=== PATIENT | female | born 1945 | race Caucasian/White ===

== ENCOUNTER 2019-11-02 07:03 | Inpatient (IN) | payer OTHER ==
[2019-11-02] VITALS (35 sets, daily range): BP systolic 88–148; BP diastolic 38–65
[~2019-11-02] VITALS: Ht 165.1 cm; Wt 75.4 kg
[2019-11-02] MEDS ORDERED: SYNTHROID112 MC1 PO (07:15)
[2019-11-02] MEDS ORDERED: ZESTRIL20 MG PO (07:15)
[2019-11-02 07:25] LABS: ABSOLUTE BASOPHILS 0.1 thou/uL (0.0-0.2); ABSOLUTE EOSINOPHILS 0.2 thou/uL (0.0-0.7); ABSOLUTE MONOCYTES 0.7 thou/uL (0.0-1.2); ABSOLUTE NEUTROPHILS 11.2 thou/uL (1.6-8.1); BASOPHILS 0.8 %; EOSINOPHILS 1.6 %; HEMATOCRIT 44.8 % (37.0-47.0); HEMOGLOBIN 15.6 gm/dL (12.0-15.0); LYMPHOCYTES 7.5 %; MCH 32.2 pg (26.0-34.0); MCHC 34.8 g/dL (28.0-37.0); MCV 92.8 fL (80.0-100.0); MONOCYTES 5.4 %; MPV 8.8 fl. (7.2-11.1); NUCLEATED RBCS 0 /100WBC; PLATELET COUNT* 176 thou/uL (150-400); POLYS 84.7 %; RBC 4.83 mil/uL (4.20-5.00); RDW-CV 13.6 % (10.5-14.5); WBC 13.2 thou/uL (4.0-11.0)
[2019-11-02 07:36] LABS: APTT 27.4 Seconds (25.0-31.3); INR 1.1; PROTIME 11.4 Seconds (9.20-11.50)
[2019-11-02 07:38] LABS: CREATININE 5.9 mg/dL (0.6-1.3); POTASSIUM 3.2 mmol/L (3.5-5.1)
[2019-11-02 07:39] LABS: URINE BILIRUBIN NEGATIVE (Negative); URINE BLOOD 2+ (Negative); URINE CLARITY CLEAR; URINE COLOR YELLOW; URINE GLUCOSE-RANDOM NEGATIVE (Negative); URINE KETONES NEGATIVE (Negative); URINE LEUKOCYTES-REFLEX 2+ (Negative); URINE NITRITE-REFLEX POSITIVE (Negative); URINE PROTEIN 1+ (Negative); URINE UROBILINOGEN 0.2 E.U./dl (0.2-1.0)
[2019-11-02 07:42] LABS: ALBUMIN 2.4 g/dL (3.4-5.0); MAGNESIUM 2.1 mg/dL (1.8-2.4); TOTAL BILIRUBIN 1.3 mg/dL (<0.1-1.0); TOTAL PROTEIN 6.6 g/dL (6.4-8.2)
[2019-11-02 07:46] LABS: CASTS None Seen /LPF (None Seen); CRYSTALS None Seen /LPF (None Seen); MUCUS 0-3 Light strn/LPF (None Seen); SQUAMOUS 4-10 Moderate /LPF (0-3); URINE RBC 3-10 Few /HPF (0-2)
--- NOTE | 2019-11-02 09:48 | EKG ---
[place] [address] ELECTROCARDIOGRAM REPORT Name: HEYDI MACIAS Room: [place] [address] ADM IN [facility]#: [id number] Admission: 11/02/19 Attend Phys: Pelon Vale MD Discharge: Date of : 49 Report #: [id number] THIS REPORT FOR: //name// [facility] ED Test Date: 2019-11-02 Test Time: 07:08:12 Pat Name: HEYDI MACIAS Department: Room: [facility] Gender: F Wet Pan Mixer: BOBBY : 1945 Requested By: Dinora Kan Order Number: [id number] MD: Isac Dennis Measurements Intervals [place] Rate: 86 P: 80 VA: 156 QRS: -41 QRSD: 105 T: 103 QT: 383 QTc: 458 Interpretive Statements Sinus rhythm Left atrial enlargement Left anterior fascicular block LVH with secondary repolarization abnormality No previous ECG available for comparison Electronically Signed On 11-02-2019 9:48:03 TOLL SERVICE OBSERVER by Isac Dennis [email or web address] <ELECTRONICALLY SIGNED> By: Isac Dennis MD, [facility] 11/02/19 0948 0708 0708 Isac Dennis MD, [facility] /EPI
[2019-11-02 11:56] LABS: BE -5.2 mmol/L (-2 to +3); PCO2 41.5 mmHg (35.0-45.0); PO2 65.3 mmHg (75.0-100.0); pH 7.316 (7.340-7.450)
--- NOTE | 2019-11-02 12:46 | 2DMMODE ---
[place] [address] 2 D/M-MODE ECHOCARDIOGRAM Name: AYLA MACIAS Room: [address] IN [facility]#: [id number] Admission: 11/02/19 Attend Phys: Pelon Vale, Discharge: Date of : 49 Date of Service: 11/02/19 1246 Report #: [id number] THIS REPORT FOR: //name// ADDENDUM APPROVED REPORT Study performed: 11/02/2019 11:32:03 EXAM: Comprehensive 2D, Doppler, and color-flow Echocardiogram Patient Location: In-Patient Room #: 006 Status: routine BSA: 1.71 HR: 79 bpm BP: 98/46 mmHg Rhythm: NSR Other Information Study Quality: Good Indications Congestive Heart Failure 2D Dimensions IVSd: 12.14 (7-11mm) LVOT Diam: 19.90 (18-24mm) LVDd: 35.25 mm PWd: 11.89 (7-11mm) Ascending Ao: 31.25 (22-36mm) LVDs: 21.47 (25-40mm) Aortic Root: 33.41 mm Volumes Left Atrial Volume (Systole) LA ESV Index: 20.30 mL/m2 Aortic Valve AoV Peak Maynor.: 1.75 m/s AO Peak Gr.: 12.22 mmHg LVOT Max P.58 mmHg AO Mean Gr.: 7.77 mmHg LVOT Mean P.29 mmHg LVOT Max V: 0.80 m/s AO V2 VTI: 25.09 cm LVOT Mean V: 0.52 m/s BETTIE (VTI): 1.67 cm2 LVOT V1 VTI: 13.45 cm Mitral Valve MV Mean Gr.: 2.25 mmHg E/A Ratio: 0.49 MV Decel. Time: 367.42 ms MV E Max Maynor.: 0.61 m/[place] [address] 2 D/M-MODE ECHOCARDIOGRAM Name: AYLA MACIAS Room: [address] IN .R.#: [id number] Admission: 11/02/19 Attend Phys: Pelon Vale, Discharge: Date of : 49 Date of Service: 11/02/19 1246 Report #: [id number] MV PHT: 106.55 ms MVA (PHT): 2.06 cm2 TDI E/Lateral E': 5.55 E/Medial E': 6.78 Medial E' Maynor.: 0.09 m/s Lateral E' Maynor.: 0.11 m/s Pulmonary Valve PV Peak Maynor.: 1.28 m/s PV Peak Gr.: 6.59 mmHg Tricuspid Valve RAP Estimate: 5.00 mmHg TR Peak Gr.: 31.61 mmHg RVSP: 36.00 mmHg PA Pressure: 36.00 mmHg Left Ventricle The left ventricle is normal size. There is normal LV segmental wall motion. Mild concentric left ventricular hypertrophy. Left ventricular systolic function is normal. LVEF is 60-65%. Grade I - abnormal relaxation pattern. Right Ventricle The right ventricle is normal size. The right ventricular systolic function is normal. Atria The left atrium size is normal. The right atrium size is normal. Aortic Valve Mild aortic valve sclerosis. No aortic regurgitation is present. Mild aortic stenosis. Mitral Valve There is mitral annular calcification. Mild mitral regurgitation. Mild mitral stenosis. There is mild mitral valve prolapse. Tricuspid Valve The tricuspid valve is normal in structure. Trace tricuspid regurgitation. Mild pulmonary hypertension. Pulmonic Valve The pulmonary valve is normal in structure. There is no pulmonic [place] [address] 2 D/M-MODE ECHOCARDIOGRAM Name: AYLA MACIAS Room: [address]#: [id number] Admission: 11/02/19 Attend Phys: Pelon Vale, Discharge: Date of : 49 Date of Service: 11/02/19 1246 Report #: [id number] Great Vessels The aortic root is normal in size. IVC is normal in size and collapses >50% with inspiration. Pericardium There is no pericardial effusion. <Conclusion> The left ventricle is normal size. Mild concentric left ventricular hypertrophy. Left ventricular systolic function is normal. LVEF is 60-65%. Grade I - abnormal relaxation pattern. Mild aortic valve sclerosis. Mild aortic stenosis. There is mitral annular calcification. There is mild mitral valve prolapse. Mild mitral regurgitation. Mild mitral stenosis. Trace tricuspid regurgitation. Mild pulmonary hypertension. IVC is normal in size and collapses >50% with inspiration. <ELECTRONICALLY SIGNED> By: Fede Payton MD, FACC 11/02/19 1246 1246 1246 Fede Payton MD, FACC /INF
[2019-11-02 14:16] LABS: HEMATOCRIT 40.7 % (37.0-47.0); HEMOGLOBIN 14.1 gm/dL (12.0-15.0); MCH 32.6 pg (26.0-34.0); MCHC 34.7 g/dL (28.0-37.0); RBC 4.33 mil/uL (4.20-5.00); RDW-CV 13.4 % (10.5-14.5); WBC 14.9 thou/uL (4.0-11.0)
[2019-11-02 14:29] LABS: CALCIUM 7.5 mg/dL (8.5-10.1); CREATININE 5.7 mg/dL (0.6-1.3); POTASSIUM 3.3 mmol/L (3.5-5.1); TOTAL BILIRUBIN 1.4 mg/dL (<0.1-1.0); TOTAL PROTEIN 4.9 g/dL (6.4-8.2)
[2019-11-02 17:34] LABS: BE -5.3 mmol/L (-2 to +3); PCO2 49.1 mmHg (35.0-45.0)
[2019-11-02 17:36] LABS: PO2 240.3 mmHg (75.0-100.0); pH 7.267 (7.340-7.450)
[2019-11-02 17:39] LABS: HEMATOCRIT 38.5 % (37.0-47.0); HEMOGLOBIN 13.1 gm/dL (12.0-15.0); MCHC 34.1 g/dL (28.0-37.0); MCV 93.8 fL (80.0-100.0); MPV 9.2 fl. (7.2-11.1); RBC 4.1 mil/uL (4.20-5.00); RDW-CV 13.8 % (10.5-14.5); WBC 18.6 thou/uL (4.0-11.0)
[2019-11-02 17:57] LABS: ALBUMIN 1.7 g/dL (3.4-5.0); CALCIUM 7.5 mg/dL (8.5-10.1); CREATININE 5.1 mg/dL (0.6-1.3); POTASSIUM 3.5 mmol/L (3.5-5.1); TOTAL BILIRUBIN 1.8 mg/dL (<0.1-1.0); TOTAL PROTEIN 4.7 g/dL (6.4-8.2)
[2019-11-02 18:10] LABS: BE -5.4 mmol/L (-2 to +3); PO2 84.3 mmHg (75.0-100.0)
[2019-11-02 18:19] LABS: PCO2 50.6 mmHg (35.0-45.0); pH 7.258 (7.340-7.450)
[2019-11-02 22:26] LABS: INFLUENZA A ANTIGEN Negative (Negative); INFLUENZA B ANTIGEN Negative (Negative)
[2019-11-02 22:35] LABS: BE -5.1 mmol/L (-2 to +3); PCO2 44.4 mmHg (35.0-45.0); PO2 87.4 mmHg (75.0-100.0)
[2019-11-02 22:36] LABS: pH 7.298 (7.340-7.450)
[2019-11-02 22:43] LABS: CALCIUM 7.6 mg/dL (8.5-10.1); CREATININE 5.1 mg/dL (0.6-1.3); POTASSIUM 3.8 mmol/L (3.5-5.1)
[2019-11-03] VITALS (28 sets, daily range): BP systolic 91–137; BP diastolic 34–69
[2019-11-03 04:17] LABS: HEMATOCRIT 37.5 % (37.0-47.0); HEMOGLOBIN 12.6 gm/dL (12.0-15.0); MCH 31.6 pg (26.0-34.0); MCHC 33.6 g/dL (28.0-37.0); MCV 93.9 fL (80.0-100.0); MPV 8.6 fl. (7.2-11.1); NUCLEATED RBCS 0 /100WBC; PLATELET COUNT* 177 thou/uL (150-400); WBC 22.1 thou/uL (4.0-11.0)
[2019-11-03 04:38] LABS: INR 1.2; PROTIME 12.6 Seconds (9.20-11.50)
[2019-11-03 05:33] LABS: BE -5.1 mmol/L (-2 to +3); PCO2 43.4 mmHg (35.0-45.0); PO2 77.9 mmHg (75.0-100.0); pH 7.306 (7.340-7.450)
[2019-11-03 05:52] LABS: ALBUMIN 1.6 g/dL (3.4-5.0); CALCIUM 7.9 mg/dL (8.5-10.1); CREATININE 5.2 mg/dL (0.6-1.3); MAGNESIUM 1.6 mg/dL (1.8-2.4); PHOSPHORUS* 6.1 mg/dL (2.5-4.9); TOTAL PROTEIN 5.2 g/dL (6.4-8.2)
[2019-11-03 06:48] LABS: ABSOLUTE LYMPHOCYTES 1.1 thou/uL (0.8-5.3); PLATELET ESTIMATE ADEQUATE; TOXIC GRANULATION 1+
[2019-11-03 09:20] LABS: BE -4.2 mmol/L (-2 to +3); PCO2 41.3 mmHg (35.0-45.0); PO2 85.6 mmHg (75.0-100.0); pH 7.333 (7.340-7.450)
[2019-11-03 17:08] LABS: BE -3.6 mmol/L (-2 to +3); PCO2 37.3 mmHg (35.0-45.0); PO2 90.6 mmHg (75.0-100.0); pH 7.372 (7.340-7.450)
[2019-11-04] VITALS (23 sets, daily range): BP systolic 96–137; BP diastolic 40–70
[2019-11-04 01:54] LABS: BE -3.6 mmol/L (-2 to +3); PCO2 41.1 mmHg (35.0-45.0); PO2 97.7 mmHg (75.0-100.0); pH 7.344 (7.340-7.450)
[2019-11-04 06:06] LABS: ABSOLUTE LYMPHOCYTES 0.7 thou/uL (0.8-5.3); ABSOLUTE MONOCYTES 0.4 thou/uL (0.0-1.2); ABSOLUTE NEUTROPHILS 18.6 thou/uL (1.6-8.1); BASOPHILS 0.1 %; HEMATOCRIT 33.8 % (37.0-47.0); HEMOGLOBIN 11.6 gm/dL (12.0-15.0); LYMPHOCYTES 3.5 %; MCH 32.2 pg (26.0-34.0); MCHC 34.2 g/dL (28.0-37.0); MCV 94.2 fL (80.0-100.0); MONOCYTES 1.9 %; MPV 8.7 fl. (7.2-11.1); NUCLEATED RBCS 0 /100WBC; PLATELET COUNT* 178 thou/uL (150-400); POLYS 94.5 %; RBC 3.59 mil/uL (4.20-5.00); RDW-CV 13.8 % (10.5-14.5); WBC 19.7 thou/uL (4.0-11.0)
[2019-11-04 06:10] LABS: PHOSPHORUS* 6.2 mg/dL (2.5-4.9)
[2019-11-04 06:13] LABS: ALBUMIN 1.4 g/dL (3.4-5.0); ALKALINE PHOSPHATASE 55 U/L (46-116); ANION GAP 13 mmol/L (7-16); BUN 72 mg/dL (7-18); CALCIUM 7.7 mg/dL (8.5-10.1); CHLORIDE 101 mmol/L (98-107); CO2 23 mmol/L (21-32); CREATININE 5.1 mg/dL (0.6-1.3); GLUCOSE 83 mg/dL (70-99); SGOT 18 U/L (15-37); SGPT < 6 U/L (30-65); SODIUM 137 mmol/L (136-145); TOTAL BILIRUBIN 0.7 mg/dL (<0.1-1.0)
[2019-11-04 06:17] LABS: PREALBUMIN 6.4 mg/dL (18.0-35.7)
[2019-11-04 07:13] LABS: ESR (SEDRATE) 55 mm/hr (0-30)
[2019-11-05] VITALS (24 sets, daily range): BP systolic 93–150; BP diastolic 39–74
[2019-11-05 04:35] LABS: ALBUMIN 1.3 g/dL (3.4-5.0); CALCIUM 7.6 mg/dL (8.5-10.1); CREATININE 5.1 mg/dL (0.6-1.3); POTASSIUM 3.7 mmol/L (3.5-5.1); TOTAL BILIRUBIN 0.6 mg/dL (<0.1-1.0); TOTAL PROTEIN 4.8 g/dL (6.4-8.2)
[2019-11-05 04:38] LABS: ABSOLUTE LYMPHOCYTES 0.6 thou/uL (0.8-5.3); ABSOLUTE MONOCYTES 0.3 thou/uL (0.0-1.2); ABSOLUTE NEUTROPHILS 20.7 thou/uL (1.6-8.1); BASOPHILS 0.1 %; HEMATOCRIT 33.9 % (37.0-47.0); HEMOGLOBIN 11.6 gm/dL (12.0-15.0); LYMPHOCYTES 2.7 %; MCHC 34.3 g/dL (28.0-37.0); MCV 93.5 fL (80.0-100.0); MONOCYTES 1.5 %; MPV 8.5 fl. (7.2-11.1); NUCLEATED RBCS 0 /100WBC; PLATELET COUNT* 207 thou/uL (150-400); POLYS 95.7 %; RBC 3.63 mil/uL (4.20-5.00); RDW-CV 14.4 % (10.5-14.5); WBC 21.7 thou/uL (4.0-11.0)
[2019-11-05 05:09] LABS: MAGNESIUM 1.9 mg/dL (1.8-2.4); PHOSPHORUS* 5.9 mg/dL (2.5-4.9)
--- NOTE | 2019-11-05 09:24 | CON ---
[address] [address] CONSULTATION Name: AYLA MACIAS Room: [address] IN ..#: [id number] Admission: 11/02/19 Attend Phys: Pelon Vale MD Discharge: Date of : 49 Report #: [id number] THIS REPORT FOR: //name// CC: Pelon Vale [facility] DATE OF SERVICE: 11/02/2019 NEPHROLOGY CONSULTATION CONSULTING PHYSICIAN: Dinora Kan MD REASON FOR NEPHROLOGY CONSULTATION: Acute renal failure. REASON FOR ADMISSION: UTI, acute renal failure. The patient came in feeling very short of breath. 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 She does not have any history of RI or does not have a stent. She has history of hypertension, history of hypothyroidism. She does smoke every day about 5-6 cigarettes a day and she was visiting her son for [place] and became very short of breath last night and that is why she was brought to the hospital. A week ago, she had a GI bug. She was having diarrhea. People were sick around her and she was taking naproxen about 2 tablets a day since then. She also takes lisinopril at home. According to patient's son, the patient had not been drinking much water. Here, her labs showed sodium 132, potassium 3.2, chloride 93, BUN 85, creatinine 5.9 and baseline labs are not known and her blood pressure was also low 90, systolic when she came in. She also has evidence of left-sided pneumonia. She has been started on IV fluids. The patient also received a dose of Ativan before I could evaluate her, so she was very drowsy and could not provide review of systems. REVIEW OF SYSTEMS: Could not provide because she is quite drowsy. Please refer to history of present illness. ALLERGIES: GENTAMICIN. PAST MEDICAL HISTORY: CHF with ejection fraction not known, some kind of congenital heart murmur, hypertension, hypothyroidism. CURRENT MEDICATIONS: Include lisinopril, levothyroxine. She was taking naproxen at least 2 a day at least for the last week or so. FAMILY HISTORY: No history of any kidney disease in [place] [address] CONSULTATION Name: MACIASAYLA Room: [address] IN [facility]#: [id number] Admission: 11/02/19 Attend Phys: Pelon Vale MD Discharge: Date of : 49 Report #: [id number] does not have any personal history of kidney stones. SOCIAL HISTORY: She smokes about 5-6 cigarettes a day, but does not take alcohol or use recreational drugs. PHYSICAL EXAMINATION: VITAL SIGNS: Blood pressure is 99/61, pulse ox was 94% on 4.5 liters oxygen via OxyMask, pulse rate is 88, temperature 36.7, respiratory rate is 23. GENERAL: She is actually quite drowsy right now status post Ativan. HEAD AND EYES: Atraumatic, normocephalic and normal conjunctivae. EARS, NOSE, THROAT: Ears and nose normal and she has an OxyMask in place. Mucous membranes are dry. NECK: No JVD. CHEST: Bilaterally diminished breath sounds anteriorly. No crackles heard anteriorly. CARDIOVASCULAR: S1, S2 normal. No murmurs heard. ABDOMEN: Soft, ____. Lower abdomen is distended. Bowel sounds are decreased. EXTREMITIES: Lower extremities: There is no edema. SKIN: Quite dry. There is some cyanosis of peripheral extremities, lower extremities and skin turgor is decreased. NEUROLOGICAL FUNCTION: She is currently quite lethargic. She also had received Ativan just before I could evaluate her. PSYCHIATRIC: Not able to assess. LABORATORY DATA: Her sodium is 132. Her white count is 13.2, hemoglobin 15.6. Potassium is 3.2, chloride 93, BUN 85 and creatinine 5.9. Other labs are reviewed. IMAGING: Chest x-ray was reviewed. ASSESSMENT: 1. Acute kidney injury. This is in the setting of dehydration, not enough water intake, naproxen, lisinopril use in the setting of urinary tract infection and recent diarrhea. Baseline creatinine is not known. Urinalysis has 1+ protein, 2+ blood and has evidence of urinary tract infection. Renal imaging is pending. 2. Chronic obstructive pulmonary disease and left-sided pneumonia. 3. Lower tract urinary tract infection. 4. Hypokalemia. 5. Hyponatremia in the setting of intravascular volume depletion. 6. Acute respiratory failure because of the pneumonia as mentioned above. 7. History of hypertension. Blood pressure is currently running low. 8. History of hypothyroidism. PLAN: 1. The patient needs to be hydrated. Normal saline at 100 mL an hour has been [address] [address] CONSULTATION Name: AYLA MACIAS Room: [address] IN M.R.#: [id number] Admission: 11/02/19 Attend Phys: Pelon Vale MD Discharge: Date of : 49 Report #: [id number] ordered. 2. Potassium has been replaced. 3. We will order renal ultrasound. 4. Try to keep her mean arterial pressure around 65-70. Avoid nephrotoxic agent and check I's and O's. Please record strict I's and O's. 5. Treatment of UTI and pneumonia as per primary team. 6. Try to get a baseline creatinine. Thank you for this consultation. We will continue to follow with you. Discussed with the patient's son as well as ED physician, Dr. Kan. <ELECTRONICALLY SIGNED> By: Ernestina Gill MD 11/05/19 0924 0908 0950Ernestina Gill MD /nt
--- NOTE | 2019-11-05 12:06 | PATH ---
[address] [address] PATHOLOGY RPT PROCEDURE Name: SUZAN MACIAS Room: [address] IN ..#: [id number] Admission: 11/02/19 Date of : 49 Discharge: Report #: [id number] Path Case #: [id number] [facility] Accession Number: [id number] . 01 Material submitted: . stomach - BIOPSY,GASTRIC . 01 Clinical history: . Preop DX: FREE AIR IN ABDOMIN Postop DX: PERFORATED GASTRIC ULCER . 02 Diagnosis: Gastric biopsy: - Mostly ulcerated inflammatory exudate. - No viable mucosa seen. - The immunoperoxidase stain reveals few punctate degenerated bacteria consistent with Helicobacter pylori. - Fibroadepose tissue and muscle seen consistent with perforation. - See comment. LBQ 11/05/2019 1154 Local . 02 Comment: Most of the mucosa is denuded, ulcerated and necrotic. Suggest clinical correlation. (SHA/db; 11/05/2019) . 02 Electronically signed: . Isma Reyna MD, Pathologist NPI- [id number] . 01 Gross description: . Received in formalin labeled "Suzan Macias, gastric BX," is an elongate segment of pale rodriguez to dark rodriguez-brown soft tissue measuring 1.8 x 0.3 x 0.2 cm in greatest dimensions. The specimen is submitted entirely in cassette A1. ([facility]; 11/04/2019) XDC/XDC 11/04/2019 0746 Local . 02 Pathologist provided ICD-10: K29.00, B96.81 . 02 CPT . 082801, H74358 Specimen Comment: A courtesy copy of this report has been sent to [phone] Specimen Comment: Report sent to Performed at: [address] [id number] [place] [address] PATHOLOGY RPT PROCEDURE Name: SUZAN MACIAS Room: [address] IN [facility]#: [id number] Admission: 11/02/19 Date of : 49 Discharge: Report #: [id number] Path Case #: [id number] MD Ventura Muniz MD Phone: [phone] Performed at: 02 [facility] [address] [facility], [place], [place] [id number] MD Villa Samson MD Phone: [phone]
--- NOTE | 2019-11-05 19:00 | OP ---
[address] [address] OPERATIVE REPORT Name: AYLA MACIAS Room: [address] IN ..#: [id number] Admission: 11/02/19 Attend Phys: Pelon Vale MD Discharge: Date of : 49 Report #: [id number] THIS REPORT FOR: //name// CC: Pelon Vale [facility] DATE OF SERVICE: 11/02/2019 Surgeon: Dr. Anthony Tool Marker: Dr. Larkin PREOPERATIVE DIAGNOSES: 1. Peritonitis. 2. Septic shock 3. Free intraperitoneal air POSTOPERATIVE DIAGNOSIS: Perforated gastric ulcer PROCEDURE: Exploratory laparotomy, repair of gastric ulcer, omental patch, ANGIE drain placement. INDICATIONS: The patient is a 74-year-old female that presented to the Emergency Department with chest pain. She underwent workup in the Emergency Department and in the ICU which included a CT of the abdomen and pelvis, which revealed free intraperitoneal air and free intraperitoneal fluid. On physical exam, she had abdominal guarding. Exploratory laparotomy was indicated. The risks and benefits of surgery were explained to her and her son at bedside. Risks of bleeding, infection, damage to nearby structures, and postoperative complications including DVT, PE, MS, and were explained. The patient and her son agreed to proceed with the operation. DESCRIPTION OF PROCEDURE: The patient was taken to the operating room theater and placed in the supine position. General anesthesia was induced without complication. Bilateral SCDs were placed. Antibiotics had been given preoperatively. A timeout was performed and all were in agreement. The patient's abdomen was prepped and draped in the standard sterile fashion. An upper midline celiotomy incision was then made using a 10 blade scalpel approximately 4 fingerbreadths under the xiphoid to the infraumbilical position. Dissection was carried down through the subcutaneous fat using electrocautery until the midline fascia was appreciated. Midline fascia was then scored using electrocautery and elevated. The abdomen was entered using a hemostat bluntly. Upon entry to the abdomen, murky fluid was immediately visualized This was suctioned out. Upon inspection of the stomach, there was a significant amount of inflammation, gastric contents, and adhesions near the pylorus. A 2-cm circular gastric perforation was appreciated just proximal to the [place] [address] OPERATIVE REPORT Name: AYLA MACIAS Room: [address] IN [facility].#: [id number] Admission: 11/02/19 Attend Phys: Pelon Vale MD Discharge: Date of : 49 Report #: [id number] More ulcer base could be visualized through the perforation on the greater curvature. Next, a nasogastric tube was placed by Anesthesia and this was placed above the defect. Thereafter, a nasojejunal tube was placed by Anesthesia and this was threaded into the proximal jejunum distal to the defect. The perforated stomach ulcer edges were debrided and part of the edge was removed with metzenbaum scissors and sent for pathology. Next, three 3-0 Vicryl sutures were used to close the gastric defect. These were full-thickness bites. Next, an omental flap was created. The greater omentum was elevated out of the abdominal cavity and using Kellys and 3-0 silk, a tongue of omentum was created. The tongue of omentum was then placed over the gastric defect Three interrupted sutures were then placed in a butress fashion. The omentum was secured over the defect and the 3-0 silk buttress sutures were then tied over the omentum careful not to strangulate the omentum. Next, the abdomen was copiously irrigated and suctioned out and a ANGIE drain was placed through her abdominal wall in the right upper quadrant and placed adjacent to the repaired perforation site. The stomach was further inspected for other perforations. None were found on the anterior stomach. The lesser sac did not have any fluid or bile staining and so we chose not to risk taking down the adhesions and the inflammatory mass to fully open the lesser sac and inspect the entirety of the posterior stomach. Thereafter, the midline abdominal fascia was closed using two #1 looped PDS sutures. The skin was closed using jesenia. The ANGIE drain was sutured in place using a 2-0 nylon stitch. This concluded the procedure. All instrument, needle, and laparotomy pad counts were correct x 2. ESTIMATED BLOOD LOSS: 10 mL. COMPLICATIONS: None. DRAINS: ANGIE drain adjacent to the perforation site. SPECIMEN: A rim of the ulcer was taken and sent for pathology. DISPOSITION: The patient was left intubated and taken to the ICU in critical condition. <ELECTRONICALLY SIGNED> By: Adam Anthony DO 11/05/191899 47 19Adam Anthony DO /nt
[2019-11-06] VITALS (47 sets, daily range): BP systolic 87–136; BP diastolic 42–73
[2019-11-06 04:38] LABS: HEMATOCRIT 36.2 % (37.0-47.0); HEMOGLOBIN 12.2 gm/dL (12.0-15.0); MCH 31.7 pg (26.0-34.0); MCHC 33.6 g/dL (28.0-37.0); MCV 94.2 fL (80.0-100.0); MPV 8.6 fl. (7.2-11.1); RBC 3.84 mil/uL (4.20-5.00); RDW-CV 14.2 % (10.5-14.5); WBC 19.1 thou/uL (4.0-11.0)
[2019-11-06 05:06] LABS: ALBUMIN 1.3 g/dL (3.4-5.0); CALCIUM 7.9 mg/dL (8.5-10.1); CREATININE 4.7 mg/dL (0.6-1.3); MAGNESIUM 1.9 mg/dL (1.8-2.4); POTASSIUM 3.8 mmol/L (3.5-5.1); TOTAL BILIRUBIN 0.6 mg/dL (<0.1-1.0)
[2019-11-06 14:07] LABS: COMPLEMENT-C4 19 mg/dL (14-44); IgA 412 mg/dL (64-422); IgG 533 mg/dL (700-1600); IgM 22 mg/dL (26-217)
[2019-11-06 22:16] LABS: BE -4.3 mmol/L (-2 to +3); PO2 77.8 mmHg (75.0-100.0)
[2019-11-06 22:18] LABS: pH 7.273 (7.340-7.450)
[2019-11-06 22:19] LABS: PCO2 50.6 mmHg (35.0-45.0)
[2019-11-06 23:38] LABS: BE -6.5 mmol/L (-2 to +3); PO2 86.3 mmHg (75.0-100.0)
[2019-11-06 23:39] LABS: pH 7.264 (7.340-7.450)
[2019-11-07] VITALS (36 sets, daily range): BP systolic 78–140; BP diastolic 36–73
[2019-11-07 00:20] LABS: ABSOLUTE EOSINOPHILS 0.1 thou/uL (0.0-0.7); ABSOLUTE LYMPHOCYTES 0.6 thou/uL (0.8-5.3); ABSOLUTE MONOCYTES 0.5 thou/uL (0.0-1.2); BASOPHILS 0.2 %; EOSINOPHILS 0.6 %; HEMATOCRIT 33.3 % (37.0-47.0); HEMOGLOBIN 11.2 gm/dL (12.0-15.0); LYMPHOCYTES 3.1 %; MCHC 33.6 g/dL (28.0-37.0); MCV 95.3 fL (80.0-100.0); MONOCYTES 2.6 %; MPV 8.8 fl. (7.2-11.1); NUCLEATED RBCS 0 /100WBC; PLATELET COUNT* 197 thou/uL (150-400); POLYS 93.5 %; RBC 3.49 mil/uL (4.20-5.00); RDW-CV 14.5 % (10.5-14.5); WBC 20.3 thou/uL (4.0-11.0)
[2019-11-07 00:45] LABS: CALCIUM 7.5 mg/dL (8.5-10.1); POTASSIUM 3.8 mmol/L (3.5-5.1)
[2019-11-07 00:46] LABS: INR 1.2; PROTIME 12.7 Seconds (9.20-11.50)
[2019-11-07 01:54] LABS: BE -2.9 mmol/L (-2 to +3); PCO2 42.9 mmHg (35.0-45.0); pH 7.341 (7.340-7.450)
[2019-11-07 05:35] LABS: ABSOLUTE EOSINOPHILS 0.2 thou/uL (0.0-0.7); ABSOLUTE LYMPHOCYTES 0.8 thou/uL (0.8-5.3); ABSOLUTE MONOCYTES 0.5 thou/uL (0.0-1.2); ABSOLUTE NEUTROPHILS 17.3 thou/uL (1.6-8.1); BASOPHILS 0.1 %; EOSINOPHILS 0.9 %; HEMATOCRIT 32.3 % (37.0-47.0); HEMOGLOBIN 10.9 gm/dL (12.0-15.0); LYMPHOCYTES 4.2 %; MCH 31.9 pg (26.0-34.0); MCHC 33.7 g/dL (28.0-37.0); MCV 94.6 fL (80.0-100.0); MONOCYTES 2.6 %; MPV 8.8 fl. (7.2-11.1); NUCLEATED RBCS 0 /100WBC; PLATELET COUNT* 196 thou/uL (150-400); POLYS 92.2 %; RBC 3.42 mil/uL (4.20-5.00); RDW-CV 14.5 % (10.5-14.5); WBC 18.8 thou/uL (4.0-11.0)
[2019-11-07 06:03] LABS: ALBUMIN 1.1 g/dL (3.4-5.0); CALCIUM 7.7 mg/dL (8.5-10.1); CREATININE 4.9 mg/dL (0.6-1.3); PHOSPHORUS* 4.9 mg/dL (2.5-4.9); POTASSIUM 3.4 mmol/L (3.5-5.1)
--- NOTE | 2019-11-07 12:55 | CON ---
[address] [address] CONSULTATION Name: AYLA MACIAS Room: [address] IN .R.#: [id number] Admission: 11/02/19 Attend Phys: Pelon Vale MD Discharge: Date of : 49 Report #: [id number] THIS REPORT FOR: //name// CC: Pelon Haji [facility] DATE OF SERVICE: 11/03/2019 CONSULTATION: Infectious diseases. HISTORY OF PRESENT ILLNESS: The patient is a 74-year-old white female who comes to the hospital on because of chest pain, increasing shortness of breath, and orthopnea. The patient became somewhat agitated, was sedated and then had respiratory failure requiring a BiPAP pump. Workup then demonstrated free air under the diaphragm on the CT chest. She was taken to surgery urgently where a perforated gastric ulcer was noted and repaired. The patient returned from the OR on a ventilator. Infectious Disease consultation has been requested to assist with antibiotic therapy. PAST MEDICAL HISTORY: Significant for hypertension, heart failure, and hypothyroidism. ALLERGIES: The chart notes allergy to GENTAMICIN. FAMILY HISTORY: Noncontributory. SOCIAL HISTORY: The patient normally lives in [place], [place], but was in the area visiting family for [place]. She is . She does smoke cigarettes. Reportedly, about a quarter pack per day. No history of alcohol or drugs. REVIEW OF SYSTEMS: Limited because the patient is still on the ventilator, although awake and alert. When asked if she did have any pain, she denies. No specific complaints regarding the head, neck, or chest symptoms. It is notable that the chart describes GI symptoms for about a week with diarrhea, nausea, and vomiting. Other people in the family had also been sick and actually her kids have been in the ER for GI symptoms. The chart also notes, the patient denies any abdominal symptoms including abdominal pain, nausea, vomiting, and diarrhea. PHYSICAL EXAMINATION: GENERAL: The patient appears comfortable, awake, on a ventilator, not in any distress. VITAL SIGNS: Show the patient has been afebrile through this hospitalization. Blood pressure at one point was as low as 88/38, but now is 120/56 after surgery and fluid resuscitation. SKIN: Shows no rash, no lesion. ENT: Negative. Endotracheal and nasogastric tubes appear [place] [address] CONSULTATION Name: GILBERTOAYLA M Room: [address]#: [id number] Admission: 11/02/19 Attend Phys: Pelon Vale MD Discharge: Date of : 49 Report #: [id number] HEART: Sounds S1, S2. CHEST: Breath sounds are diminished to anterior auscultation. ABDOMEN: Belly is soft postoperative, mildly to moderately tender. Surgical dressing not removed. EXTREMITIES: Unremarkable. LABORATORY DATA: White count has gone from 13,000 to 22,000 postoperatively. Hemoglobin is 12.6, hematocrit 37.5. Electrolytes are normal. BUN 77, creatinine 5.2. There is no history of renal insufficiency. Liver function tests are normal. Chest x-ray shows infiltrates. CT demonstrated the free air under the diaphragm with atelectasis and infiltrates. Cultures of blood and urine and abdominal fluid are no growth so far. IMPRESSION: Status post repair of a perforated gastric ulcer. Upper GI perforations usually do not have a lot of contamination. Zosyn would probably be adequate coverage. Fluconazole is not unreasonable. I suspect that this leukocytosis is probably due to an acute stress reaction after the surgery. This will probably resolve fairly quickly. With the infiltrates and respiratory failure, it will be worthwhile to obtain a sputum culture while the patient is intubated to direct further antibiotic therapy. Lactic acid could be a useful marker for sepsis as would be the inflammatory markers including procalcitonin, sedimentation rate, and CRP. I appreciate the opportunity of input in the care of this patient. Dr. Whiting will return tomorrow for additional followup. Thank you for this referral. <ELECTRONICALLY SIGNED> By: David Taylor MD 11/07/19 1255 1542 2130Jofabienne Taylor MD /nt
[2019-11-08] VITALS (24 sets, daily range): BP systolic 102–135; BP diastolic 48–74
[2019-11-08 05:09] LABS: HEMATOCRIT 32.5 % (37.0-47.0); MCH 31.8 pg (26.0-34.0); MCHC 33.9 g/dL (28.0-37.0); MPV 9.2 fl. (7.2-11.1); NUCLEATED RBCS 0 /100WBC; PLATELET COUNT* 208 thou/uL (150-400); RBC 3.46 mil/uL (4.20-5.00); RDW-CV 14.1 % (10.5-14.5); WBC 21.6 thou/uL (4.0-11.0)
[2019-11-08 05:27] LABS: CALCIUM 7.5 mg/dL (8.5-10.1); CREATININE 4.9 mg/dL (0.6-1.3); PHOSPHORUS* 3.5 mg/dL (2.5-4.9); POTASSIUM 3.1 mmol/L (3.5-5.1); TOTAL BILIRUBIN 0.6 mg/dL (<0.1-1.0); TOTAL PROTEIN 4.5 g/dL (6.4-8.2)
[2019-11-08 05:34] LABS: BE -3.5 mmol/L (-2 to +3); PCO2 34.5 mmHg (35.0-45.0); PO2 79.2 mmHg (75.0-100.0); pH 7.395 (7.340-7.450)
[2019-11-08 06:31] LABS: ABSOLUTE LYMPHOCYTES 0.9 thou/uL (0.8-5.3); ABSOLUTE MONOCYTES 0.4 thou/uL (0.0-1.2); ABSOLUTE NEUTROPHILS 20.3 thou/uL (1.6-8.1); PLATELET ESTIMATE ADEQUATE
[2019-11-08 08:43] LABS: BE -3.8 mmol/L (-2 to +3); PCO2 40.5 mmHg (35.0-45.0); pH 7.345 (7.340-7.450)
[2019-11-08 08:45] LABS: PO2 134.3 mmHg (75.0-100.0)
[2019-11-09] VITALS (39 sets, daily range): BP systolic 101–157; BP diastolic 49–79
[2019-11-09 00:18] LABS: MAGNESIUM 1.9 mg/dL (1.8-2.4); POTASSIUM 3.7 mmol/L (3.5-5.1); TROPONIN-I LEVEL 0.09 ng/mL (<0.06)
[2019-11-09 03:44] LABS: ABSOLUTE BASOPHILS 0.1 thou/uL (0.0-0.2); ABSOLUTE EOSINOPHILS 0.2 thou/uL (0.0-0.7); ABSOLUTE LYMPHOCYTES 0.5 thou/uL (0.8-5.3); ABSOLUTE MONOCYTES 0.4 thou/uL (0.0-1.2); ABSOLUTE NEUTROPHILS 16.2 thou/uL (1.6-8.1); BASOPHILS 0.5 %; HEMOGLOBIN 10.1 gm/dL (12.0-15.0); LYMPHOCYTES 2.9 %; MCH 31.6 pg (26.0-34.0); MCHC 33.6 g/dL (28.0-37.0); MONOCYTES 2.4 %; MPV 9.5 fl. (7.2-11.1); NUCLEATED RBCS 0 /100WBC; PLATELET COUNT* 197 thou/uL (150-400); POLYS 93.2 %; RDW-CV 14.2 % (10.5-14.5); WBC 17.4 thou/uL (4.0-11.0)
[2019-11-09 03:55] LABS: CALCIUM 7.2 mg/dL (8.5-10.1); CREATININE 4.4 mg/dL (0.6-1.3); PHOSPHORUS* 3.4 mg/dL (2.5-4.9); POTASSIUM 3.7 mmol/L (3.5-5.1)
--- NOTE | 2019-11-09 14:17 | EKG ---
[place] [address] ELECTROCARDIOGRAM REPORT Name: AYLA MACIAS Room: [address] ADM IN M.R.#: [id number] Admission: 11/02/19 Attend Phys: Pelon Vale MD Discharge: Date of : 49 Report #: [id number] THIS REPORT FOR: //name// [facility] Test Date: 2019-11-08 Test Time: 20:58:24 Pat Name: AYLA MACIAS Department: Room: [address] Gender: F Fine Arts Teacher: : 1945 Requested By: Pelon Vale Order Number: [id number] Reading MD: Isac Dennis Measurements Intervals [place] Rate: 87 P: 1 NH: 140 QRS: -40 QRSD: 100 T: 100 QT: 363 QTc: 437 Interpretive Statements Sinus tachycardia Atrial premature complexes Probable left atrial enlargement Left anterior fascicular block Borderline repolarization abnormality Compared to ECG 11/02/2019 07:08:12 Atrial premature complex(es) now present Sinus rhythm no longer present Left ventricular hypertrophy no longer present Electronically Signed On 11-09-2019 14:16:35 PUBLIC HEALTH SANITARIAN by Isac Dennis [email or web address] <ELECTRONICALLY SIGNED> By: Isac Dennis MD, FACC 11/09/19 1416 57 57 Isac Dennis MD, FACC /EPI
[2019-11-10] VITALS (32 sets, daily range): BP systolic 113–146; BP diastolic 54–92
[2019-11-10 05:54] LABS: ABSOLUTE EOSINOPHILS 0.2 thou/uL (0.0-0.7); ABSOLUTE LYMPHOCYTES 0.6 thou/uL (0.8-5.3); ABSOLUTE MONOCYTES 0.5 thou/uL (0.0-1.2); ABSOLUTE NEUTROPHILS 12.9 thou/uL (1.6-8.1); BASOPHILS 0.3 %; EOSINOPHILS 1.5 %; HEMATOCRIT 30.4 % (37.0-47.0); HEMOGLOBIN 10.2 gm/dL (12.0-15.0); LYMPHOCYTES 4.3 %; MCH 31.4 pg (26.0-34.0); MCHC 33.4 g/dL (28.0-37.0); MCV 93.9 fL (80.0-100.0); MONOCYTES 3.3 %; MPV 9.5 fl. (7.2-11.1); NUCLEATED RBCS 0 /100WBC; PLATELET COUNT* 236 thou/uL (150-400); POLYS 90.6 %; RBC 3.24 mil/uL (4.20-5.00); RDW-CV 14.5 % (10.5-14.5); WBC 14.3 thou/uL (4.0-11.0)
[2019-11-10 06:12] LABS: ALBUMIN 1.1 g/dL (3.4-5.0); CALCIUM 7.2 mg/dL (8.5-10.1); CREATININE 4.6 mg/dL (0.6-1.3); PHOSPHORUS* 3.7 mg/dL (2.5-4.9); POTASSIUM 3.4 mmol/L (3.5-5.1)
[2019-11-11] VITALS (22 sets, daily range): BP systolic 113–144; BP diastolic 55–78
[2019-11-11 06:28] LABS: HEMATOCRIT 31.1 % (37.0-47.0); HEMOGLOBIN 10.5 gm/dL (12.0-15.0); MCH 31.7 pg (26.0-34.0); MCHC 33.7 g/dL (28.0-37.0); MCV 94.2 fL (80.0-100.0); MPV 9.7 fl. (7.2-11.1); NUCLEATED RBCS 0 /100WBC; PLATELET COUNT* 255 thou/uL (150-400); RDW-CV 14.4 % (10.5-14.5); WBC 16.6 thou/uL (4.0-11.0)
[2019-11-11 06:32] LABS: CALCIUM 7.3 mg/dL (8.5-10.1); CREATININE 4.3 mg/dL (0.6-1.3); POTASSIUM 3.5 mmol/L (3.5-5.1)
[2019-11-11 06:36] LABS: ALBUMIN 1.2 g/dL (3.4-5.0); CALCIUM 7.2 mg/dL (8.5-10.1); CREATININE 4.2 mg/dL (0.6-1.3); PHOSPHORUS* 3.4 mg/dL (2.5-4.9); POTASSIUM 3.5 mmol/L (3.5-5.1)
[2019-11-11 06:55] LABS: ABSOLUTE LYMPHOCYTES 1.5 thou/uL (0.8-5.3); ABSOLUTE MONOCYTES 0.2 thou/uL (0.0-1.2); ABSOLUTE NEUTROPHILS 14.9 thou/uL (1.6-8.1); ANISOCYTOSIS 1+; PLATELET ESTIMATE ADEQUATE; POIKILOCYTOSIS 1+
[2019-11-11 10:11] LABS: KAPPA FREE LIGHT CHAINS 150.3 mg/L (3.3-19.4); LAMBDA FREE LIGHT CHAINS 85.5 mg/L (5.7-26.3)
[2019-11-12] VITALS (22 sets, daily range): BP systolic 114–136; BP diastolic 61–87
[2019-11-12 05:28] LABS: ABSOLUTE BASOPHILS 0.1 thou/uL (0.0-0.2); ABSOLUTE EOSINOPHILS 0.2 thou/uL (0.0-0.7); ABSOLUTE LYMPHOCYTES 0.6 thou/uL (0.8-5.3); ABSOLUTE MONOCYTES 0.5 thou/uL (0.0-1.2); ABSOLUTE NEUTROPHILS 13.4 thou/uL (1.6-8.1); BASOPHILS 0.6 %; EOSINOPHILS 1.2 %; HEMATOCRIT 27.7 % (37.0-47.0); HEMOGLOBIN 9.4 gm/dL (12.0-15.0); LYMPHOCYTES 4.3 %; MCH 32.1 pg (26.0-34.0); MCHC 34.1 g/dL (28.0-37.0); MCV 94.3 fL (80.0-100.0); MONOCYTES 3.6 %; MPV 9.3 fl. (7.2-11.1); NUCLEATED RBCS 0 /100WBC; PLATELET COUNT* 241 thou/uL (150-400); POLYS 90.3 %; RBC 2.94 mil/uL (4.20-5.00); RDW-CV 14.3 % (10.5-14.5); WBC 14.9 thou/uL (4.0-11.0)
[2019-11-12 05:39] LABS: ALBUMIN 1.2 g/dL (3.4-5.0); CALCIUM 7.3 mg/dL (8.5-10.1); CREATININE 4.2 mg/dL (0.6-1.3); POTASSIUM 3.4 mmol/L (3.5-5.1); TOTAL BILIRUBIN 0.6 mg/dL (<0.1-1.0); TOTAL PROTEIN 4.8 g/dL (6.4-8.2)
[2019-11-12 12:11] LABS: ANA INTERPRETATION Negative (Negative); GLOMERULR BASEM MEMBRN AB 3 units (0-20)
[2019-11-13] VITALS (20 sets, daily range): BP systolic 118–144; BP diastolic 64–86
[2019-11-13 03:52] LABS: HEMATOCRIT 26.6 % (37.0-47.0); MCV 94.3 fL (80.0-100.0); MPV 9.4 fl. (7.2-11.1); NUCLEATED RBCS 0 /100WBC; PLATELET COUNT* 262 thou/uL (150-400); RBC 2.82 mil/uL (4.20-5.00); RDW-CV 14.6 % (10.5-14.5); WBC 13.1 thou/uL (4.0-11.0)
[2019-11-13 04:14] LABS: ALBUMIN 1.2 g/dL (3.4-5.0); CALCIUM 7.4 mg/dL (8.5-10.1); CREATININE 4.1 mg/dL (0.6-1.3); POTASSIUM 3.5 mmol/L (3.5-5.1); TOTAL BILIRUBIN 0.7 mg/dL (<0.1-1.0); TOTAL PROTEIN 4.9 g/dL (6.4-8.2)
[2019-11-13 04:23] LABS: PREALBUMIN 18.1 mg/dL (18.0-35.7)
[2019-11-13 04:53] LABS: ABSOLUTE EOSINOPHILS 0.1 thou/uL (0.0-0.7); ABSOLUTE LYMPHOCYTES 0.8 thou/uL (0.8-5.3); ABSOLUTE MONOCYTES 0.3 thou/uL (0.0-1.2); ABSOLUTE NEUTROPHILS 11.9 thou/uL (1.6-8.1); HYPOCHROMASIA 1+; PLATELET ESTIMATE ADEQUATE
[2019-11-13 04:55] LABS: POLYCHROMASIA 1+; TARGET CELLS Occasional
[2019-11-14] VITALS (18 sets, daily range): BP systolic 113–145; BP diastolic 56–83
[2019-11-14 06:38] LABS: ABSOLUTE BASOPHILS 0.1 thou/uL (0.0-0.2); ABSOLUTE EOSINOPHILS 0.2 thou/uL (0.0-0.7); ABSOLUTE LYMPHOCYTES 0.6 thou/uL (0.8-5.3); ABSOLUTE MONOCYTES 0.5 thou/uL (0.0-1.2); ABSOLUTE NEUTROPHILS 10.1 thou/uL (1.6-8.1); BASOPHILS 0.7 %; EOSINOPHILS 1.4 %; HEMATOCRIT 26.2 % (37.0-47.0); HEMOGLOBIN 8.9 gm/dL (12.0-15.0); LYMPHOCYTES 4.9 %; MCH 32.1 pg (26.0-34.0); MCV 94.5 fL (80.0-100.0); MONOCYTES 4.5 %; MPV 9.8 fl. (7.2-11.1); NUCLEATED RBCS 0 /100WBC; PLATELET COUNT* 276 thou/uL (150-400); POLYS 88.5 %; RBC 2.78 mil/uL (4.20-5.00); RDW-CV 14.3 % (10.5-14.5); WBC 11.4 thou/uL (4.0-11.0)
[2019-11-14 06:56] LABS: ALBUMIN 1.2 g/dL (3.4-5.0); CALCIUM 7.5 mg/dL (8.5-10.1); CREATININE 4.2 mg/dL (0.6-1.3); POTASSIUM 3.4 mmol/L (3.5-5.1); TOTAL BILIRUBIN 0.6 mg/dL (<0.1-1.0)
[2019-11-15] VITALS (23 sets, daily range): BP systolic 116–157; BP diastolic 63–87
[2019-11-15 05:28] LABS: ABSOLUTE BASOPHILS 0.1 thou/uL (0.0-0.2); ABSOLUTE EOSINOPHILS 0.2 thou/uL (0.0-0.7); ABSOLUTE LYMPHOCYTES 0.7 thou/uL (0.8-5.3); ABSOLUTE MONOCYTES 0.5 thou/uL (0.0-1.2); ABSOLUTE NEUTROPHILS 7.4 thou/uL (1.6-8.1); BASOPHILS 0.9 %; EOSINOPHILS 2.2 %; HEMATOCRIT 27.3 % (37.0-47.0); HEMOGLOBIN 9.2 gm/dL (12.0-15.0); LYMPHOCYTES 7.8 %; MCH 32.2 pg (26.0-34.0); MCHC 33.8 g/dL (28.0-37.0); MCV 95.1 fL (80.0-100.0); MONOCYTES 5.5 %; MPV 9.7 fl. (7.2-11.1); NUCLEATED RBCS 0 /100WBC; PLATELET COUNT* 299 thou/uL (150-400); POLYS 83.6 %; RBC 2.87 mil/uL (4.20-5.00); RDW-CV 14.6 % (10.5-14.5); WBC 8.9 thou/uL (4.0-11.0)
[2019-11-15 05:48] LABS: ALBUMIN 1.3 g/dL (3.4-5.0); CALCIUM 7.4 mg/dL (8.5-10.1); CREATININE 4.2 mg/dL (0.6-1.3); POTASSIUM 3.7 mmol/L (3.5-5.1); TOTAL BILIRUBIN 0.7 mg/dL (<0.1-1.0); TOTAL PROTEIN 5.2 g/dL (6.4-8.2)
[2019-11-15 05:54] LABS: PREALBUMIN 19.4 mg/dL (18.0-35.7)
[2019-11-15 06:28] LABS: MAGNESIUM 2.1 mg/dL (1.8-2.4); PHOSPHORUS* 5.6 mg/dL (2.5-4.9)
[2019-11-16] VITALS (9 sets, daily range): BP systolic 122–151; BP diastolic 59–72
[2019-11-16 05:19] LABS: ABSOLUTE BASOPHILS 0.1 thou/uL (0.0-0.2); ABSOLUTE EOSINOPHILS 0.2 thou/uL (0.0-0.7); ABSOLUTE LYMPHOCYTES 0.8 thou/uL (0.8-5.3); ABSOLUTE MONOCYTES 0.6 thou/uL (0.0-1.2); ABSOLUTE NEUTROPHILS 7.8 thou/uL (1.6-8.1); BASOPHILS 1.2 %; EOSINOPHILS 2.5 %; HEMATOCRIT 25.2 % (37.0-47.0); HEMOGLOBIN 8.8 gm/dL (12.0-15.0); LYMPHOCYTES 8.2 %; MCH 33.2 pg (26.0-34.0); MCHC 34.8 g/dL (28.0-37.0); MCV 95.5 fL (80.0-100.0); MONOCYTES 6.1 %; MPV 9.5 fl. (7.2-11.1); NUCLEATED RBCS 0 /100WBC; PLATELET COUNT* 326 thou/uL (150-400); RBC 2.63 mil/uL (4.20-5.00); RDW-CV 14.5 % (10.5-14.5); WBC 9.6 thou/uL (4.0-11.0)
[2019-11-16 05:35] LABS: ALBUMIN 1.3 g/dL (3.4-5.0); CALCIUM 7.7 mg/dL (8.5-10.1); CREATININE 4.2 mg/dL (0.6-1.3); POTASSIUM 3.6 mmol/L (3.5-5.1); TOTAL BILIRUBIN 0.6 mg/dL (<0.1-1.0); TOTAL PROTEIN 5.3 g/dL (6.4-8.2)
[2019-11-16 05:53] LABS: PREALBUMIN 19.6 mg/dL (18.0-35.7)
[2019-11-17 01:23] VITALS: BP 115/47
[2019-11-17 03:30] VITALS: BP 112/58
[2019-11-17 06:01] LABS: ABSOLUTE BASOPHILS 0.1 thou/uL (0.0-0.2); ABSOLUTE EOSINOPHILS 0.2 thou/uL (0.0-0.7); ABSOLUTE LYMPHOCYTES 0.7 thou/uL (0.8-5.3); ABSOLUTE MONOCYTES 0.6 thou/uL (0.0-1.2); BASOPHILS 1.3 %; EOSINOPHILS 2.1 %; HEMATOCRIT 25.5 % (37.0-47.0); HEMOGLOBIN 8.6 gm/dL (12.0-15.0); LYMPHOCYTES 8.1 %; MCH 32.2 pg (26.0-34.0); MCHC 33.7 g/dL (28.0-37.0); MCV 95.5 fL (80.0-100.0); MONOCYTES 6.7 %; MPV 9.7 fl. (7.2-11.1); NUCLEATED RBCS 0 /100WBC; PLATELET COUNT* 336 thou/uL (150-400); POLYS 81.8 %; RBC 2.67 mil/uL (4.20-5.00); RDW-CV 14.5 % (10.5-14.5); WBC 8.5 thou/uL (4.0-11.0)
[2019-11-17 06:18] LABS: CREATININE 4.5 mg/dL (0.6-1.3); POTASSIUM 3.2 mmol/L (3.5-5.1)
[2019-11-17 07:45] VITALS: BP 120/60
[2019-11-17 16:00] VITALS: BP 123/59
[2019-11-17 20:15] VITALS: BP 116/63
[2019-11-18] VITALS: BP 120/66
[2019-11-18 04:00] VITALS: BP 118/53
[2019-11-18 07:44] VITALS: BP 123/72
[2019-11-18 11:48] LABS: HEMATOCRIT 23.9 % (37.0-47.0); HEMOGLOBIN 8.1 gm/dL (12.0-15.0); MCH 32.7 pg (26.0-34.0); MCHC 34.1 g/dL (28.0-37.0); MCV 95.8 fL (80.0-100.0); MPV 9.6 fl. (7.2-11.1); RBC 2.49 mil/uL (4.20-5.00); RDW-CV 14.8 % (10.5-14.5); WBC 7.8 thou/uL (4.0-11.0)
[2019-11-18 12:10] LABS: CALCIUM 7.7 mg/dL (8.5-10.1); CREATININE 4.7 mg/dL (0.6-1.3); POTASSIUM 3.6 mmol/L (3.5-5.1)
[2019-11-18 16:00] VITALS: BP 127/62
[2019-11-19 04:36] LABS: HEMOGLOBIN 8.9 gm/dL (12.0-15.0); MCH 33.1 pg (26.0-34.0); MCHC 34.3 g/dL (28.0-37.0); MCV 96.5 fL (80.0-100.0); MPV 9.7 fl. (7.2-11.1); RBC 2.7 mil/uL (4.20-5.00); RDW-CV 15.6 % (10.5-14.5); WBC 7.4 thou/uL (4.0-11.0)
[2019-11-19 04:47] LABS: MAGNESIUM 2.4 mg/dL (1.8-2.4); POTASSIUM 3.7 mmol/L (3.5-5.1)
[2019-11-19 04:49] LABS: ALBUMIN 1.5 g/dL (3.4-5.0); CALCIUM 7.6 mg/dL (8.5-10.1); PHOSPHORUS* 6.6 mg/dL (2.5-4.9); POTASSIUM 4.1 mmol/L (3.5-5.1)
[2019-11-19 08:00] VITALS: BP 144/66
[2019-11-19 15:44] LABS: URINE BILIRUBIN NEGATIVE (Negative); URINE BLOOD 1+ (Negative); URINE CLARITY CLEAR; URINE COLOR YELLOW; URINE GLUCOSE-RANDOM NEGATIVE (Negative); URINE KETONES NEGATIVE (Negative); URINE LEUKOCYTES-REFLEX NEGATIVE (Negative); URINE NITRITE-REFLEX NEGATIVE (Negative); URINE PROTEIN TRACE (Negative); URINE SPECIFIC GRAVITY 1.025 (1.005-1.030); URINE UROBILINOGEN 0.2 E.U./dl (0.2-1.0)
[2019-11-19 15:51] LABS: SQUAMOUS >10 Many /LPF (0-3)
[2019-11-19 15:52] LABS: URINE RBC 0-2 Rare /HPF (0-2); URINE WBC-REFLEX 0-5 Rare /HPF (0-5)
[2019-11-19 15:53] LABS: BACTERIA-REFLEX >30 Many /HPF (None Seen)
[2019-11-19 15:54] LABS: MUCUS 0-3 Light strn/LPF (None Seen)
[2019-11-19 15:55] LABS: CASTS None Seen /LPF (None Seen); CRYSTALS None Seen /LPF (None Seen)
[2019-11-19 16:43] VITALS: BP 141/81
[2019-11-19 20:00] VITALS: BP 148/77
[2019-11-20 05:15] LABS: HEMATOCRIT 21.2 % (37.0-47.0); HEMOGLOBIN 7.3 gm/dL (12.0-15.0); MCH 33.3 pg (26.0-34.0); MCHC 34.6 g/dL (28.0-37.0); MCV 96.4 fL (80.0-100.0); MPV 9.8 fl. (7.2-11.1); RBC 2.2 mil/uL (4.20-5.00); RDW-CV 15.7 % (10.5-14.5); WBC 5.9 thou/uL (4.0-11.0)
[2019-11-20 05:31] LABS: CALCIUM 7.8 mg/dL (8.5-10.1); CREATININE 4.9 mg/dL (0.6-1.3); MAGNESIUM 2.2 mg/dL (1.8-2.4); POTASSIUM 3.3 mmol/L (3.5-5.1)
[2019-11-20 05:37] LABS: ALBUMIN 2.3 g/dL (3.4-5.0); CALCIUM 7.9 mg/dL (8.5-10.1); PHOSPHORUS* 6.1 mg/dL (2.5-4.9); POTASSIUM 3.3 mmol/L (3.5-5.1)
[2019-11-20 16:00] VITALS: BP 139/73
[2019-11-20 22:01] VITALS: BP 146/79
[2019-11-21 05:33] LABS: HEMATOCRIT 23.2 % (37.0-47.0); HEMOGLOBIN 7.8 gm/dL (12.0-15.0); MCH 32.8 pg (26.0-34.0); MCHC 33.6 g/dL (28.0-37.0); MCV 97.6 fL (80.0-100.0); MPV 8.9 fl. (7.2-11.1); RBC 2.38 mil/uL (4.20-5.00); RDW-CV 16.3 % (10.5-14.5); WBC 7.4 thou/uL (4.0-11.0)
[2019-11-21 06:10] LABS: ALBUMIN 1.9 g/dL (3.4-5.0); CALCIUM 7.6 mg/dL (8.5-10.1); CREATININE 5.2 mg/dL (0.6-1.3); MAGNESIUM 2.2 mg/dL (1.8-2.4); PHOSPHORUS* 4.3 mg/dL (2.5-4.9); POTASSIUM 3.2 mmol/L (3.5-5.1); TOTAL BILIRUBIN 0.6 mg/dL (<0.1-1.0); TOTAL PROTEIN 5.6 g/dL (6.4-8.2)
[2019-11-21 17:21] VITALS: BP 154/97
[2019-11-21 20:30] VITALS: BP 157/78
[2019-11-22 02:38] VITALS: BP 134/71
[2019-11-22 05:08] LABS: ALBUMIN 2.2 g/dL (3.4-5.0); CALCIUM 8.1 mg/dL (8.5-10.1); CREATININE 4.8 mg/dL (0.6-1.3); MAGNESIUM 2.3 mg/dL (1.8-2.4); PHOSPHORUS* 3.7 mg/dL (2.5-4.9); POTASSIUM 3.7 mmol/L (3.5-5.1)
[2019-11-22 08:26] VITALS: BP 146/90
[2019-11-22 16:00] VITALS: BP 142/84
[2019-11-22 21:09] VITALS: BP 166/95
[2019-11-23 04:25] LABS: HEMATOCRIT 22.8 % (37.0-47.0); HEMOGLOBIN 7.6 gm/dL (12.0-15.0); MCH 32.7 pg (26.0-34.0); MCHC 33.4 g/dL (28.0-37.0); MCV 97.9 fL (80.0-100.0); MPV 9.8 fl. (7.2-11.1); RBC 2.33 mil/uL (4.20-5.00); WBC 6.7 thou/uL (4.0-11.0)
[2019-11-23 04:45] LABS: ALBUMIN 2.3 g/dL (3.4-5.0); CALCIUM 7.3 mg/dL (8.5-10.1); CREATININE 4.8 mg/dL (0.6-1.3); PHOSPHORUS* 3.1 mg/dL (2.5-4.9); POTASSIUM 4.2 mmol/L (3.5-5.1)
[2019-11-23 04:48] LABS: ALBUMIN 2.3 g/dL (3.4-5.0); CALCIUM 6.4 mg/dL (8.5-10.1); CREATININE 4.7 mg/dL (0.6-1.3); TOTAL BILIRUBIN 0.5 mg/dL (<0.1-1.0); TOTAL PROTEIN 5.6 g/dL (6.4-8.2)
[2019-11-23 04:49] LABS: POTASSIUM 4.7 mmol/L (3.5-5.1)
[2019-11-23 08:42] VITALS: BP 149/81
[2019-11-23 16:00] VITALS: BP 170/86
[2019-11-23 20:15] VITALS: BP 170/96
[2019-11-24] VITALS: BP 159/91
[2019-11-24 04:59] LABS: HEMATOCRIT 23.5 % (37.0-47.0); HEMOGLOBIN 7.9 gm/dL (12.0-15.0); MCH 32.5 pg (26.0-34.0); MCHC 33.5 g/dL (28.0-37.0); MCV 97.1 fL (80.0-100.0); MPV 9.3 fl. (7.2-11.1); RBC 2.42 mil/uL (4.20-5.00); RDW-CV 16.8 % (10.5-14.5); WBC 7.6 thou/uL (4.0-11.0)
[2019-11-24 05:00] LABS: CALCIUM 8.1 mg/dL (8.5-10.1); CREATININE 4.5 mg/dL (0.6-1.3); MAGNESIUM 2.2 mg/dL (1.8-2.4); POTASSIUM 3.5 mmol/L (3.5-5.1)
[2019-11-24 05:17] LABS: CALCIUM 8.1 mg/dL (8.5-10.1); CREATININE 4.5 mg/dL (0.6-1.3); POTASSIUM 3.5 mmol/L (3.5-5.1)
[2019-11-24 05:30] LABS: PHOSPHORUS* 2.4 mg/dL (2.5-4.9)
[2019-11-24 16:00] VITALS: BP 151/86
[2019-11-24 21:45] VITALS: BP 155/82
[2019-11-25] VITALS (17 sets, daily range): BP systolic 144–177; BP diastolic 70–97
[2019-11-25 03:29] LABS: HEMATOCRIT 25.4 % (37.0-47.0); HEMOGLOBIN 8.6 gm/dL (12.0-15.0); MCHC 33.9 g/dL (28.0-37.0); MCV 97.2 fL (80.0-100.0); MPV 9.2 fl. (7.2-11.1); RBC 2.61 mil/uL (4.20-5.00); RDW-CV 16.8 % (10.5-14.5); WBC 7.9 thou/uL (4.0-11.0)
[2019-11-25 03:58] LABS: BE -11.1 mmol/L (-2 to +3); PO2 72.3 mmHg (75.0-100.0)
[2019-11-25 04:00] LABS: ALBUMIN 2.1 g/dL (3.4-5.0); CALCIUM 8.3 mg/dL (8.5-10.1); CREATININE 4.4 mg/dL (0.6-1.3); MAGNESIUM 2.2 mg/dL (1.8-2.4); POTASSIUM 3.5 mmol/L (3.5-5.1); TOTAL BILIRUBIN 0.5 mg/dL (<0.1-1.0); TOTAL PROTEIN 5.8 g/dL (6.4-8.2)
[2019-11-25 04:00] LABS: pH 7.239 (7.340-7.450)
[2019-11-25 14:59] LABS: URINE BILIRUBIN NEGATIVE (Negative); URINE BLOOD TRACE (Negative); URINE CLARITY CLEAR; URINE COLOR YELLOW; URINE GLUCOSE-RANDOM NEGATIVE (Negative); URINE KETONES NEGATIVE (Negative); URINE LEUKOCYTES-REFLEX NEGATIVE (Negative); URINE NITRITE-REFLEX NEGATIVE (Negative); URINE PROTEIN NEGATIVE (Negative); URINE SPECIFIC GRAVITY <= 1.005 (1.005-1.030); URINE UROBILINOGEN 0.2 E.U./dl (0.2-1.0)
--- NOTE | 2019-11-25 17:06 | EKG ---
[place] [address] ELECTROCARDIOGRAM REPORT Name: AYLA MACIAS Room: [address] ADM IN M.R.#: [id number] Admission: 11/02/19 Attend Phys: Pelon Vale MD Discharge: Date of : 49 Report #: [id number] THIS REPORT FOR: //name// [facility] Test Date: 2019-11-25 Test Time: 04:11:11 Pat Name: AYLA MACIAS Department: Room: [facility] Gender: F Bow Maker Production: DT : 1945 Requested By: Christelle Larkin Order Number: [id number] Yaima MD: David Lentz Measurements Intervals [place] Rate: 83 P: 20 TN: 146 QRS: -28 QRSD: 100 T: 84 QT: 402 QTc: 473 Interpretive Statements Sinus rhythm Ventricular premature complex Probable left atrial enlargement Left ventricular hypertrophy Compared to ECG 11/08/2019 20:58:24 Ventricular premature complex(es) now present Left ventricular hypertrophy now present Sinus tachycardia no longer present Atrial premature complex(es) no longer present Left anterior fascicular block no longer present Electronically Signed On 11-25-2019 17:05:22 VENEER GRADER by David Lentz [email or web address] <ELECTRONICALLY SIGNED> By: David Lentz MD, FAC 11/25/19 1705 0411 0411 David Lentz MD, [facility] /EPI
[2019-11-26] VITALS (14 sets, daily range): BP systolic 140–166; BP diastolic 58–87
[2019-11-26 03:19] LABS: HEMATOCRIT 26.3 % (37.0-47.0); HEMOGLOBIN 9.1 gm/dL (12.0-15.0); MCH 33.2 pg (26.0-34.0); MCHC 34.8 g/dL (28.0-37.0); MCV 95.4 fL (80.0-100.0); MPV 8.8 fl. (7.2-11.1); RBC 2.75 mil/uL (4.20-5.00); RDW-CV 16.8 % (10.5-14.5); WBC 7.8 thou/uL (4.0-11.0)
[2019-11-26 03:34] LABS: CALCIUM 8.3 mg/dL (8.5-10.1); CREATININE 4.3 mg/dL (0.6-1.3); MAGNESIUM 2.3 mg/dL (1.8-2.4); POTASSIUM 3.2 mmol/L (3.5-5.1); TOTAL BILIRUBIN 0.5 mg/dL (<0.1-1.0)
[2019-11-27 07:06] LABS: CALCIUM 8.3 mg/dL (8.5-10.1); CREATININE 3.9 mg/dL (0.6-1.3); MAGNESIUM 2.2 mg/dL (1.8-2.4); POTASSIUM 3.5 mmol/L (3.5-5.1)
[2019-11-27 08:09] VITALS: BP 166/86
[2019-11-27 22:00] VITALS: BP 162/81
[2019-11-28 04:20] VITALS: BP 144/73
[2019-11-28 04:56] LABS: CALCIUM 8.3 mg/dL (8.5-10.1); CREATININE 3.6 mg/dL (0.6-1.3); MAGNESIUM 2.2 mg/dL (1.8-2.4); PHOSPHORUS* 2.9 mg/dL (2.5-4.9); POTASSIUM 3.3 mmol/L (3.5-5.1)
[2019-11-28 09:30] VITALS: BP 139/77
[2019-11-28 16:00] VITALS: BP 141/73
[2019-11-28 19:35] VITALS: BP 157/77
[2019-11-29] VITALS: BP 144/72
[2019-11-29 04:00] VITALS: BP 137/66
[2019-11-29 07:56] VITALS: BP 148/74
[2019-11-29 08:33] LABS: CALCIUM 8.4 mg/dL (8.5-10.1); CREATININE 3.2 mg/dL (0.6-1.3); POTASSIUM 4.2 mmol/L (3.5-5.1)
[2019-11-29 16:13] VITALS: BP 165/83
[2019-11-30 04:00] VITALS: BP 156/75
[2019-11-30 04:01] LABS: HEMATOCRIT 23.6 % (37.0-47.0); HEMOGLOBIN 8.1 gm/dL (12.0-15.0); MCH 33.1 pg (26.0-34.0); MCHC 34.5 g/dL (28.0-37.0); MCV 96.1 fL (80.0-100.0); MPV 8.9 fl. (7.2-11.1); RBC 2.46 mil/uL (4.20-5.00); WBC 8.6 thou/uL (4.0-11.0)
[2019-11-30 04:24] LABS: CALCIUM 8.2 mg/dL (8.5-10.1); MAGNESIUM 2.1 mg/dL (1.8-2.4); POTASSIUM 4.2 mmol/L (3.5-5.1)
[2019-11-30 08:26] VITALS: BP 150/87
[2019-11-30 16:00] VITALS: BP 151/85
[2019-12-01 00:47] VITALS: BP 168/84
[2019-12-01 04:40] VITALS: BP 153/71
[2019-12-01 07:56] LABS: CALCIUM 8.4 mg/dL (8.5-10.1); CREATININE 2.9 mg/dL (0.6-1.3); MAGNESIUM 2.2 mg/dL (1.8-2.4); POTASSIUM 4.6 mmol/L (3.5-5.1)
[2019-12-01 08:00] VITALS: BP 166/83
[2019-12-01 08:45] LABS: APTT 27.1 Seconds (25.0-31.3); PROTIME 10.6 Seconds (9.20-11.50)
[2019-12-01 16:15] VITALS: BP 170/90
[2019-12-01 23:56] VITALS: BP 147/77
[2019-12-02 04:11] VITALS: BP 155/79
[2019-12-02 05:55] LABS: CALCIUM 8.3 mg/dL (8.5-10.1); CREATININE 2.7 mg/dL (0.6-1.3); PHOSPHORUS* 4.9 mg/dL (2.5-4.9); POTASSIUM 4.3 mmol/L (3.5-5.1)
[2019-12-02 08:00] VITALS: BP 174/95
--- NOTE | 2019-12-02 14:11 | EKG ---
[place] [address] ELECTROCARDIOGRAM REPORT Name: AYLA MACIAS Room: [address] ADM IN .R.#: [id number] Admission: 11/02/19 Attend Phys: Pelon Vale MD Discharge: Date of : 49 Report #: [id number] THIS REPORT FOR: //name// [facility] Test Date: 2019-12-02 Test Time: 13:03:22 Pat Name: AYLA MACIAS Department: Room: [address] Gender: F Shrimp Header: : 1945 Requested By: Christelle Larkin Order Number: [id number] Reading MD: Isac Dennis Measurements Intervals [place] Rate: 86 P: 33 RI: 143 QRS: -8 QRSD: 93 T: 69 QT: 386 QTc: 462 Interpretive Statements Sinus rhythm Probable left atrial enlargement Compared to ECG 11/25/2019 04:11:11 Ventricular premature complex(es) no longer present Left ventricular hypertrophy no longer present Electronically Signed On 12-02-2019 14:10:57 [employer] by Isac Dennis [email or web address] <ELECTRONICALLY SIGNED> By: Isac Dennis MD, [facility] 12/02/19 1410 1303 1303 Isac Dennis MD, [facility] /EPI
[2019-12-02 16:00] VITALS: BP 148/75
--- NOTE | 2019-12-06 16:21 | CON ---
[address] [address] CONSULTATION Name: AYLA MACIAS Room: [address] IN ..#: [id number] Admission: 11/02/19 Attend Phys: Pelon Vale MD Discharge: 12/02/19 Date of : 49 Report #: [id number] THIS REPORT FOR: //name// CC: [facility]on [facility] DATE OF SERVICE: 12/02/2019 CARDIOLOGY CONSULTATION HISTORY OF PRESENT ILLNESS: The patient is a 74-year-old single white female who I was asked to see in the hospital today after she complained of chest pain. The patient states that she was told in the past that she had a hole in her heart. 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 She was told there was a hole between her right and left ventricle. She never required surgery or medications. She had no restrictions from a heart standpoint. She is not very active and denies any previous history of chest pain, shortness of breath, palpitations, syncope or peripheral edema. She apparently was doing well until . She was in [place] visiting her son for . She presented to the Emergency Room complaining of abdominal pain. CT scan apparently showed a perforated viscus. She was taken to the operating room. She apparently had a perforated peptic ulcer. She required surgery. She developed a leak. She had a drain placed. She has been n.p.o. since that time and on persistent TPN. She developed confusion, anasarca, and acute renal insufficiency. She is now stable and awaiting transfer to a long-term care facility. She is not very active at this time and primarily in bed. Recently, she complained of a sharp pain in her chest. There is no radiation of the pain. It is not related to exertion, meals or lifting. No associated shortness of breath or diaphoresis. She denied any palpitation or syncope. PAST MEDICAL HISTORY: She had a previous history of hypertension. No history of diabetes. PAST SURGICAL HISTORY: She had a hysterectomy. ALLERGIES: She had previous allergy to GENTAMICIN. MEDICATIONS ON ADMISSION: Included lisinopril, Synthroid. FAMILY HISTORY: Father had heart attack. SOCIAL HISTORY: She is single, lives by herself in [place], [place]. She is retired from [employer]. Smokes a pack of cigarettes a day. No alcohol abuse. REVIEW OF SYSTEMS: She has had no history of stroke, asthma, liver disease, [place] [address] CONSULTATION Name: AYLA MACIAS Room: [address]#: [id number] Admission: 11/02/19 Attend Phys: Pelon Vale MD Discharge: 12/02/19 Date of : 49 Report #: [id number] kidney disease, cancer, or psychiatric illness. PHYSICAL EXAMINATION: GENERAL: Revealed a frail-appearing elderly female lying in bed with an NG in place. She appeared in no acute distress. CURRENT VITAL SIGNS: She has a blood pressure of 140/70, pulse is 80, she is afebrile. HEENT: She is anicteric. Conjunctivae are pale. Mucous membranes dry. NECK: Veins do not appear distended. CHEST: Clear to auscultation. CARDIOVASCULAR: Regular rate and rhythm. Grade 4 holosystolic murmur at the lower sternal border. ABDOMEN: Soft. EXTREMITIES: Had no edema. Dorsalis pedis pulse could not be palpated. SKIN: Cool and dry. NEUROLOGIC: Nonfocal. DIAGNOSTIC DATA: Her ECG showed a sinus rhythm, nonspecific ST and T-wave changes. There was occasional PVC noted. Her workup so far in the Emergency Room: She actually had an echocardiogram performed that showed normal left ventricular function. There was evidence of left ventricular hypertrophy, mild aortic stenosis, mild mitral valve prolapse, mild mitral regurgitation. Her most recent chest x-ray from earlier today showed bilateral pleural effusion, mild pulmonary vascular congestion, normal heart size. She has had a thoracentesis performed. She had a biliary drain in place. LABORATORY DATA: Her current lab work consists of BUN of 83, creatinine 2.7. Creatinine actually went up to 5.0 one time. Glucose is 172. She is currently on a sliding insulin scale. Her liver function studies are currently normal. Albumin is only 2.0. Troponin 0.23. BNP 2985. TSH 3.3. Currently, her white blood cell count is 8.6, hemoglobin 8, hematocrit 23.6. Hemoglobin dropped to minimum of 7.6 one time. IMPRESSION AND RECOMMENDATIONS: 1. Evidence of a ventricular septal defect. Recommend echo with bubble study. 2. Hypertension. We would recommend restarting medications. 3. History of a perforated abdominal ulcer. The patient has persistent leak. Currently, n.p.o., on drainage. 4. Chest pain. Atypical for angina. We would not recommend stress testing at this time. 5. Tobacco abuse. [address] [address] CONSULTATION Name: AYLA MACIAS Room: [address] IN .R.#: [id number] Admission: 11/02/19 Attend Phys: Pelon Vale MD Discharge: 12/02/19 Date of : 49 Report #: [id number] 6. Acute kidney injury. 7. Anemia. <ELECTRONICALLY SIGNED> By: Isac Dennis MD, FACC 12/06/19 1621 1607 [id number] Dennis MD, FACC /nt
== END 2019-12-02 18:30 | DRG 853 ==
LOC: M.ERS 07:03 → M.ORTHSURG 09:02 → M.ICU 09:02 → M.TBA-ER 09:02 → M.ICU 10:39 → M.ORTHSURG 11-16 17:16 → M.ICU 11-25 06:02 → M.ORTHSURG 11-26 11:58
PROVIDERS: Family Medicine; Internal Medicine; Internal Medicine Nephrology; Internal Medicine Pulmonary Disease; Personal Emergency Response Attendant; Radiology Diagnostic Radiology; Specialist; Surgery; ADMIT Internal Medicine
PROC: 5A1945Z Respiratory Ventilation, 24-96 Consecutive Hours (ICD-10-PCS; principal; 2019-11-02)
PROC: 5A09357 Assistance with Respiratory Ventilation, Less than 24 Consecutive Hours, Continuous Positive Airway Pressure (ICD-10-PCS; principal; 2019-11-02)
PROC: 0DU Gastrointestinal System, Supplement (ICD-10-PCS; principal; 2019-11-02)
PROC: 0BH17EZ Insertion of Endotracheal Airway into Trachea, Via Natural or Artificial Opening (ICD-10-PCS; 2019-11-02)
PROC: 5A1945Z Respiratory Ventilation, 24-96 Consecutive Hours (ICD-10-PCS; 2019-11-07)
PROC: 0DJ60ZZ Inspection of Stomach, Open Approach (ICD-10-PCS; 2019-11-08)
PROC: 0D9630Z Drainage of Stomach with Drainage Device, Percutaneous Approach (ICD-10-PCS; 2019-11-11)
PROC: 02H633Z Insertion of Infusion Device into Right Atrium, Percutaneous Approach (ICD-10-PCS; 2019-11-19)
PROC: B5181ZA Fluoroscopy of Superior Vena Cava using Low Osmolar Contrast, Guidance (ICD-10-PCS; 2019-11-19)
PROC: 0W993ZZ Drainage of Right Pleural Cavity, Percutaneous Approach (ICD-10-PCS; 2019-11-25)
PROC: B5181ZA Fluoroscopy of Superior Vena Cava using Low Osmolar Contrast, Guidance (ICD-10-PCS; 2019-12-01)
PROC: 02HV33Z Insertion of Infusion Device into Superior Vena Cava, Percutaneous Approach (ICD-10-PCS; 2019-12-01)
PROC: 0JH63XZ Insertion of Tunneled Vascular Access Device into Chest Subcutaneous Tissue and Fascia, Percutaneous Approach (ICD-10-PCS; 2019-12-01)
PROC: B548ZZA Ultrasonography of Superior Vena Cava, Guidance (ICD-10-PCS; 2019-12-01)
PROC: 0JH63XZ Insertion of Tunneled Vascular Access Device into Chest Subcutaneous Tissue and Fascia, Percutaneous Approach (ICD-10-PCS; 2019-12-02)
PROC: 02HV33Z Insertion of Infusion Device into Superior Vena Cava, Percutaneous Approach (ICD-10-PCS; 2019-12-02)
PROC: B548ZZA Ultrasonography of Superior Vena Cava, Guidance (ICD-10-PCS; 2019-12-02)
PROC: B5181ZA Fluoroscopy of Superior Vena Cava using Low Osmolar Contrast, Guidance (ICD-10-PCS; 2019-12-02)
DX: A41.9 Sepsis, unspecified organism (principal); K25.5 Chronic or unspecified gastric ulcer with perforation; J18.9 Pneumonia, unspecified organism; N17.0 Acute kidney failure with tubular necrosis; E43 Unspecified severe protein-calorie malnutrition; R65.21 Severe sepsis with septic shock; J96.01 Acute respiratory failure with hypoxia; K65.9 Peritonitis, unspecified; N39.0 Urinary tract infection, site not specified; J44.0 Chronic obstructive pulmonary disease with (acute) lower respiratory infection; E87.1 Hypo-osmolality and hyponatremia; Q21.0 Ventricular septal defect; G93.40 Encephalopathy, unspecified; J44.1 Chronic obstructive pulmonary disease with (acute) exacerbation; L03.311 Cellulitis of abdominal wall; I82.813 Embolism and thrombosis of superficial veins of lower extremities, bilateral; E87.0 Hyperosmolality and hypernatremia; L02.211 Cutaneous abscess of abdominal wall; K63.2 Fistula of intestine; E87.2 Acidosis; J90 Pleural effusion, not elsewhere classified; I50.9 Heart failure, unspecified; I11.0 Hypertensive heart disease with heart failure; E86.9 Volume depletion, unspecified; F17.210 Nicotine dependence, cigarettes, uncomplicated; E03.9 Hypothyroidism, unspecified; J44.9 Chronic obstructive pulmonary disease, unspecified; E86.0 Dehydration; E87.6 Hypokalemia; D64.9 Anemia, unspecified; R79.1 Abnormal coagulation profile; E83.42 Hypomagnesemia; Z68.27 Body mass index [BMI] 27.0-27.9, adult; B96.20 Unspecified Escherichia coli [E. coli] as the cause of diseases classified elsewhere; E83.39 Other disorders of phosphorus metabolism; J98.2 Interstitial emphysema; N39.45 Continuous leakage; E88.09 Other disorders of plasma-protein metabolism, not elsewhere classified; Z79.899 Other long term (current) drug therapy; Z95.5 Presence of coronary angioplasty implant and graft; I25.2 Old myocardial infarction; Z90.710 Acquired absence of both cervix and uterus; Z88.8 Allergy status to other drugs, medicaments and biological substances